=== PATIENT | male | born 1980 | race Hispanic/Latino ===

== ENCOUNTER 2018-09-28 08:35 | Observation (INO) | payer OTHER ==
[~2018-09-28] VITALS: Ht 170.2 cm; Wt 112.0 kg
[~2018-09-28 08:35] MED LIST: METFORMIN1000 MG PO
--- NOTE | 2018-09-28 08:43 | NUR ---
PT TO ROOM WITH A STEADY GAIT.
--- NOTE | 2018-09-28 08:50 | NUR ---
PT STATES APPROX 2 HOURS AGO HAD LEFT SIDED CHEST PAIN THAT RADIATES TO LEFT SHOULDER. LASTED A FEW MIN AND WS GONE, STATES HAS HAD 2-3 SIMILAR EPISODES IN LAST COUPLE OF WEEKS AND ONLY LASTS A FEW MIN.
--- NOTE | 2018-09-28 09:39 | NUR ---
NO CHEST PAIN AT THIS TIME
[2018-09-28 09:43] LABS: HEMATOCRIT 44.5 % (39.0-50.0); HEMOGLOBIN 15.1 g/dl (14.0-18.0); IMMATURE GRANULOCYTES 0.6 % (0.0-5.0); MEAN CELL VOLUME 85.9 fL CALC (80.0-100.0); MEAN CORPUSCULAR HGB 29.2 pG CALC (26.0-32.0); MEAN CORPUSCULAR HGB CONC 33.9 g/L CALC (32.0-36.0); NEUT# 3.51 thou/uL (1.82-7.42); RED BLOOD COUNT 5.18 mill/uL (4.70-6.10); RED CELL DISTRI WIDTH 12.2 % (11.5-15.5)
[2018-09-28 09:57] LABS: ALBUMIN 4.8 g/dL (3.2-5.0); ALKALINE PHOSPHATASE 59 u/l (38-126); ANION GAP 17 (6-22 (CALC)); BILIRUBIN, TOTAL 0.6 mg/dL (0.0-1.4); BUN 18 mg/dL (9-20); BUN/CREATININE RATIO 28 (12-20 (CALC)); CARBON DIOXIDE 25 mmol/l (22-30); CHLORIDE 101 mmol/l (95-108); CREATININE 0.7 mg/dL (0.7-1.3); GFR > 60 ML/MIN (>=60 (CALC)); GFR FOR AFR.AMER. > 60 ML/MIN (>=60 (CALC)); LIPASE 270 u/l (23-300); POTASSIUM 4.1 mmol/l (3.5-5.1); SGOT/AST 26 u/l (17-59); SODIUM 138 mmol/l (137-146); TOTAL PROTEIN 8.2 g/dL (6.3-8.2)
--- NOTE | 2018-09-28 10:30 | NUR ---
PT REMAINS CHEST PAIN FREE, VITAL SIGNS STABLE. CALL LIGHT ON STRETCHER, SITTING TALKING WITH FAMILY AND WATCHING TV.
--- NOTE | 2018-09-28 11:37 | NUR ---
PT STATES ONLY HAS SOME LEFT SHOULDER PAIN, THINKS FROM MAYBE LIFTING SOMETHING HEAVY TWO DAYS AGO. PT ALERT/ORIENTED X3
--- NOTE | 2018-09-28 12:49 | NUR ---
FOOD TRAY GIVEN TO PT WAIT FOR BED ASSIGNMENT
--- NOTE | 2018-09-28 12:58 | NUR ---
ATE APPROX 75% OF FOOD TRAY, LAUGHING AND JOKING WITH STAFF, NO CHEST PAIN, VITAL SIGNS STABLE, AT BEDSIDE
[2018-09-28 13:01] LABS: URINE BILIRUBIN - DIPSTICK NEGATIVE (NEGATIVE); URINE BLOOD DIPSTICK NEGATIVE (NEGATIVE); URINE COLOR YELLOW; URINE GLUCOSE - DIPSTICK NEGATIVE (NEGATIVE); URINE KETONE NEGATIVE (NEGATIVE); URINE LEUK ESTERASE NEGATIVE (Negative); URINE NITRITE - DIPSTICK NEGATIVE (Negative); URINE PROTEIN - DIPSTICK NEGATIVE (NEG-TRACE); URINE UROBILINOGEN - DIPSTICK 0.2 E.U./dL (0.2)
--- NOTE | 2018-09-28 13:03 | NUR ---
ICU BUSY WITH TRANSFER BUT WILL CALL ME BACK FOR REPORT SOON POSSIBLE
[2018-09-28 13:05] LABS: URINE CLARITY CLEAR
--- NOTE | 2018-09-28 13:54 | NUR ---
ICU STILL REMAINS BUSY AND UNABLE TO TAKE REPORT
--- NOTE | 2018-09-28 13:59 | NUR ---
TRIED TO GET PT UP TO DO A WALK TEST. PT BECAME TOO DIZZY TO WALK AND SAT HER BACK DOWN AND NOTIFIED OF INABILITY TO FINISH WALK.
--- NOTE | 2018-09-28 14:25 | NUR ---
PT TAKEN TO ICU ON STRETCHER WITH MONITER, REPORT GIVEN TO DEN KIM FOR CONTINUATION OF CARE.
[2018-09-28 14:38] VITALS: BP 136/74
--- NOTE | 2018-09-28 14:38 | NUR ---
male pt received to ICU bed 4 (med surg overflow) via stretcher accompanied by Vira Schaefer RN in stable condition; ambulatory to bed with steady gait; weight obtained via bed scale; admission assessment completed at this time; pt alert and oriented; denies pain at current; c/c of left chest pain radiating to posterior left shoulder pain; pt denies associated n/v/sob or diaphoresis; no exacerbating factors noted; resp even and unlabored; lungs clear bilat; skin color wnl; ra; hr reg; strong pulses; no edema noted; sr on monitor; abd soft/ distended with bs present; no bm noted per verse writer; pt admits to voiding without complication; no urine to inspect at this time; #20 to rac flushed and patent; no redness or edema noted at site; plan of care explained; will continue to monitor
--- NOTE | 2018-09-28 15:15 | NUR ---
Dr Esquivel called per story writer; informed of pt arrival to unit
--- NOTE | 2018-09-28 16:00 | NUR ---
awake in bed; spouse present at bedside; no apparent distress noted; pt offers no complaints; denies pain at current; st on monitor; Dr Esquivel present at bedside to assess pt and discuss plan of care
[2018-09-28 16:15] VITALS: BP 128/98
--- NOTE | 2018-09-28 17:59 | NUR ---
awake in bed; spouse at bedside; pt offers no complaints; no distress noted; sr on monitor; iv intact; no chest pain since admission to unit; call light within reach
--- NOTE | 2018-09-28 19:00 | NUR ---
pt awake in bed; complaints of feeling like my "glucose is high"; accucheck of 175; pt states he normally takes glucophage 1000mg twice a daily; med ordered daily; pt requesting glucophage; will clarify and administered as ordered
[2018-09-28 20:00] VITALS: BP 136/93
[2018-09-29] VITALS: BP 105/85
[2018-09-29 04:00] VITALS: BP 114/60
[2018-09-29 05:47] LABS: HEMATOCRIT 44.4 % (39.0-50.0); IMMATURE GRANULOCYTES 0.4 % (0.0-5.0); MEAN CELL VOLUME 85.7 fL CALC (80.0-100.0); MEAN CORPUSCULAR HGB CONC 33.8 g/L CALC (32.0-36.0); NEUT# 4.24 thou/uL (1.82-7.42); RED BLOOD COUNT 5.18 mill/uL (4.70-6.10); RED CELL DISTRI WIDTH 12.3 % (11.5-15.5)
[2018-09-29 06:02] LABS: ALBUMIN 4.2 g/dL (3.2-5.0); ALKALINE PHOSPHATASE 52 u/l (38-126); AMYLASE 35 u/l (30-110); ANION GAP 16 (6-22 (CALC)); BILIRUBIN, TOTAL 0.4 mg/dL (0.0-1.4); BUN 19 mg/dL (9-20); BUN/CREATININE RATIO 31 (12-20 (CALC)); CARBON DIOXIDE 22 mmol/l (22-30); CHLORIDE 105 mmol/l (95-108); CHOLESTEROL HDL RATIO 4.7 (<4.4 (CALC)); CREATININE 0.6 mg/dL (0.7-1.3); GFR > 60 ML/MIN (>=60 (CALC)); GFR FOR AFR.AMER. > 60 ML/MIN (>=60 (CALC)); LIPASE 133 u/l (23-300); MAGNESIUM 1.6 mg/dL (1.6-2.3); POTASSIUM 4.2 mmol/l (3.5-5.1); SGOT/AST 21 u/l (17-59); SODIUM 138 mmol/l (137-146); TOTAL PROTEIN 7.1 g/dL (6.3-8.2)
--- NOTE | 2018-09-29 06:55 | NUR ---
RECVD REPORT AT START OF SHIFT.
--- NOTE | 2018-09-29 07:19 | NUR ---
accucheck completed: 151. pt states he does not take insulin and only checks his sugar before breakfast & dinner. pt returned to sleep after accucheck. no needs/concerns at this time.
--- NOTE | 2018-09-29 07:57 | NUR ---
PT A&Ox4. SITTING UP IN BED, EATING BREAKFAST. DENIES CP. DENIES SOB. BREATHING EVEN/UNLABORED, LUNGS CTA. ABD SOFT/NONTENDER, ACTIVE BS. BM YESTERDAY. SUN. NO EDEMA. AFEBRILE. EYES PERRLA @3. NEGATIVE ASSESSMENT.
[2018-09-29 08:00] VITALS: BP 136/73
--- NOTE | 2018-09-29 08:58 | NUR ---
RETURNED TO PTS BEDSIDE.
--- NOTE | 2018-09-29 10:21 | NUR ---
DR ODEN @BEDSIDE WITH PT/.
[2018-09-29] MEDS ORDERED: ATORVASTATIN CA20 MG PO (10:30)
--- NOTE | 2018-09-29 11:07 | NUR ---
PT/ EDUCATED ON DC INSTRUCTIONS. PT GIVEN NOTE FOR WORK. PT REFUSED WC, AMBULATED OUT OF ICU WITH STABLE GAIT AND ALL HIS BELONGINGS.
== END 2018-09-29 11:07 | disposition home or self-care (01) | DRG 313 ==
LOC: ED 08:35 → ED-I 11:15 → ED 12:07 → ICU 12:08 → UNDODEPER 15:36 → ICU 09-29 11:07
PROVIDERS: Emergency Medicine; ADMIT Internal Medicine Nephrology; ATTEND Internal Medicine Nephrology
DX: R07.89 Other chest pain (principal); E11.9 Type 2 diabetes mellitus without complications; E78.5 Hyperlipidemia, unspecified; E66.9 Obesity, unspecified; Z68.38 Body mass index [BMI] 38.0-38.9, adult; Z79.84 Long term (current) use of oral hypoglycemic drugs

== ENCOUNTER 2020-03-16 08:44 | Emergency (ER) | payer OTHER ==
[~2020-03-16] VITALS: Ht 170.2 cm; Wt 113.6 kg
[~2020-03-16 08:44] MED LIST changes: +ATORVASTATIN CA20 MG PO
[2020-03-16 09:10] LABS: HEMATOCRIT 43.3 % (39.0-50.0); HEMOGLOBIN 14.3 g/dl (14.0-18.0); IMMATURE GRANULOCYTES 0.4 % (0.0-5.0); MEAN CELL VOLUME 86.3 fL CALC (80.0-100.0); MEAN CORPUSCULAR HGB 28.5 pG CALC (26.0-32.0); NEUT# 3.27 thou/uL (1.82-7.42); RED BLOOD COUNT 5.02 mill/uL (4.70-6.10); RED CELL DISTRI WIDTH 11.9 % (11.5-15.5)
[2020-03-16 09:11] LABS: URINE BILIRUBIN - DIPSTICK NEGATIVE (NEGATIVE); URINE BLOOD DIPSTICK NEGATIVE (NEGATIVE); URINE COLOR YELLOW; URINE GLUCOSE - DIPSTICK >=1000 mg/dL (NEGATIVE); URINE KETONE TRACE mg/dL (NEGATIVE); URINE LEUK ESTERASE NEGATIVE (NEGATIVE); URINE NITRITE - DIPSTICK NEGATIVE (Negative); URINE PROTEIN - DIPSTICK NEGATIVE (NEG-TRACE); URINE SPECIFIC GRAVITY 1.015; URINE UROBILINOGEN - DIPSTICK 0.2 E.U./dL (0.2)
[2020-03-16 09:38] LABS: ALBUMIN 4.5 g/dL (3.2-5.0); ALKALINE PHOSPHATASE 83 u/l (38-126); ANION GAP 14 (6-22 (CALC)); BILIRUBIN, TOTAL 0.4 mg/dL (0.0-1.4); BUN 24 mg/dL (9-20); BUN/CREATININE RATIO 37 (12-20 (CALC)); CARBON DIOXIDE 26 mmol/l (22-30); CHLORIDE 98 mmol/l (95-108); CREATININE 0.6 mg/dL (0.7-1.3); GFR > 60 ML/MIN (>=60 (CALC)); GFR FOR AFR.AMER. > 60 ML/MIN (>=60 (CALC)); LIPASE 207 u/l (23-300); POTASSIUM 4.7 mmol/l (3.5-5.1); SGOT/AST 28 u/l (17-59); SODIUM 134 mmol/l (137-146); TOTAL PROTEIN 7.5 g/dL (6.3-8.2)
[2020-03-16] MEDS ORDERED: PEPCID20 MG PO (11:59)
[2020-03-16 12:24] VITALS: BP 129/58
== END 2020-03-16 12:30 | disposition home or self-care (01) | DRG 392 ==
LOC: ED 08:44
PROVIDERS: Student in an Organized Health Care Education/Training Program
DX: K21.9 Gastro-esophageal reflux disease without esophagitis (principal); E11.9 Type 2 diabetes mellitus without complications; I10 Essential (primary) hypertension; Z79.84 Long term (current) use of oral hypoglycemic drugs
CPT/HCPCS: Q9967

== ENCOUNTER 2021-02-21 08:23 | Emergency (ER) | payer OTHER ==
[~2021-02-21] VITALS: Ht 170.2 cm; Wt 125.0 kg
[~2021-02-21 08:23] MED LIST changes: +PEPCID20 MG PO
[2021-02-21 09:37] LABS: GFR > 60 ML/MIN (>=60 (CALC)); GFR FOR AFR.AMER. > 60 ML/MIN (>=60 (CALC))
[2021-02-21 09:37] LABS: HEMATOCRIT 43.8 % (39.0-50.0); HEMOGLOBIN 15.1 g/dl (14.0-18.0); IMMATURE GRANULOCYTES 0.3 % (0.0-5.0); MEAN CELL VOLUME 85.7 fL CALC (80.0-100.0); MEAN CORPUSCULAR HGB 29.5 pG CALC (26.0-32.0); MEAN CORPUSCULAR HGB CONC 34.5 g/dL CAL (32.0-36.0); NEUT# 4.13 thou/uL (1.82-7.42); RED BLOOD COUNT 5.11 mill/uL (4.70-6.10); RED CELL DISTRI WIDTH 11.4 % (11.5-15.5)
[2021-02-21 09:39] LABS: URINE BILIRUBIN - DIPSTICK NEGATIVE (NEGATIVE); URINE BLOOD DIPSTICK NEGATIVE (NEGATIVE); URINE COLOR YELLOW; URINE GLUCOSE - DIPSTICK 500 mg/dL (NEGATIVE); URINE KETONE NEGATIVE (NEGATIVE); URINE LEUK ESTERASE NEGATIVE (NEGATIVE); URINE NITRITE - DIPSTICK NEGATIVE (Negative); URINE PROTEIN - DIPSTICK NEGATIVE (NEG-TRACE); URINE UROBILINOGEN - DIPSTICK 0.2 E.U./dL (0.2)
[2021-02-21 09:56] LABS: ALBUMIN 4.3 g/dL (3.2-5.0); ALKALINE PHOSPHATASE 54 u/l (38-126); ANION GAP 14 (6-22 (CALC)); BILIRUBIN, TOTAL 0.5 mg/dL (0.0-1.4); BUN 15 mg/dL (9-20); BUN/CREATININE RATIO 27 (12-20 (CALC)); CARBON DIOXIDE 26 mmol/l (22-30); CHLORIDE 99 mmol/l (95-108); CREATININE 0.6 mg/dL (0.7-1.3); GFR > 60 ML/MIN (>=60 (CALC)); GFR FOR AFR.AMER. > 60 ML/MIN (>=60 (CALC)); LIPASE 118 u/l (23-300); POTASSIUM 4.2 mmol/l (3.5-5.1); SGOT/AST 45 u/l (17-59); SODIUM 134 mmol/l (137-146); TOTAL PROTEIN 7.7 g/dL (6.3-8.2)
[2021-02-21 11:36] VITALS: BP 136/63
== END 2021-02-21 11:37 | disposition home or self-care (01) | DRG 392 ==
LOC: ED 08:23
PROVIDERS: Family Medicine
DX: R10.13 Epigastric pain (principal); R10.11 Right upper quadrant pain; R10.32 Left lower quadrant pain; E11.9 Type 2 diabetes mellitus without complications; I10 Essential (primary) hypertension; Z79.84 Long term (current) use of oral hypoglycemic drugs
CPT/HCPCS: Q9967

== ENCOUNTER 2022-01-07 10:49 | Emergency (ER) | payer OTHER ==
[~2022-01-07] VITALS: Ht 170.2 cm; Wt 114.0 kg
[2022-01-07] VITALS (9 sets, daily range): BP systolic 117–144; BP diastolic 71–85
[2022-01-07] MEDS ORDERED: OZEMPIC2 MG/1.5 M IM (11:02)
[2022-01-07] MEDS ORDERED: LUNESTA1 M1 PO (11:02)
[2022-01-07] MEDS ORDERED: ZOLOFT25 MG PO (11:02)
[2022-01-07 11:22] LABS: HEMATOCRIT 46.3 % (39.0-50.0); HEMOGLOBIN 15.8 g/dl (14.0-18.0); IMMATURE GRANULOCYTES 0.2 % (0.0-5.0); MEAN CELL VOLUME 86.1 fL CALC (80.0-100.0); MEAN CORPUSCULAR HGB 29.4 pG CALC (26.0-32.0); MEAN CORPUSCULAR HGB CONC 34.1 g/dL CAL (32.0-36.0); NEUT# 7.81 thou/uL (1.82-7.42); RED BLOOD COUNT 5.38 mill/uL (4.70-6.10); RED CELL DISTRI WIDTH 11.5 % (11.5-15.5)
[2022-01-07 11:28] LABS: URINE BILIRUBIN - DIPSTICK NEGATIVE (NEGATIVE); URINE BLOOD DIPSTICK NEGATIVE (NEGATIVE); URINE COLOR YELLOW; URINE GLUCOSE - DIPSTICK NEGATIVE (NEGATIVE); URINE KETONE NEGATIVE (NEGATIVE); URINE LEUK ESTERASE NEGATIVE (NEGATIVE); URINE PROTEIN - DIPSTICK NEGATIVE (NEG-TRACE); URINE UROBILINOGEN - DIPSTICK 0.2 E.U./dL (0.2)
[2022-01-07 11:30] LABS: URINE NITRITE - DIPSTICK NEGATIVE (Negative)
[2022-01-07 11:31] LABS: ALBUMIN 4.6 g/dL (3.2-5.0); ALKALINE PHOSPHATASE 66 u/l (38-126); ANION GAP 15 (6-22 (CALC)); BILIRUBIN, TOTAL 0.5 mg/dL (0.0-1.4); BUN 15 mg/dL (9-20); BUN/CREATININE RATIO 18 (12-20 (CALC)); CARBON DIOXIDE 23 mmol/l (22-30); CHLORIDE 104 mmol/l (95-108); CREATININE 0.8 mg/dL (0.7-1.3); GFR FOR AFR.AMER. > 60 ML/MIN (>=60 (CALC)); GFR OTHER RACES > 60 ML/MIN (>=60 (CALC)); POTASSIUM 3.8 mmol/l (3.5-5.1); SGOT/AST 34 u/l (17-59); SODIUM 138 mmol/l (137-146); TOTAL PROTEIN 8.3 g/dL (6.3-8.2)
[2022-01-07] MEDS ORDERED: PROAIR HFA108 MCG/AC PO (14:29)
[2022-01-07] MEDS ORDERED: ZPAK PO (14:29)
[2022-01-07] MEDS ORDERED: TRAZODONE100 MG PO (14:29)
== END 2022-01-07 14:42 | disposition home or self-care (01) | DRG 179 ==
LOC: ED 10:49
PROVIDERS: Family Medicine
DX: U07.1 COVID-19 (principal); R06.02 Shortness of breath; R05.9 Cough, unspecified; I10 Essential (primary) hypertension; E11.9 Type 2 diabetes mellitus without complications; E66.9 Obesity, unspecified; Z79.84 Long term (current) use of oral hypoglycemic drugs
CPT/HCPCS: Q9967

== ENCOUNTER 2022-07-07 08:25 | Emergency (ER) | payer OTHER ==
[~2022-07-07] VITALS: Ht 170.2 cm; Wt 112.7 kg
[2022-07-07] VITALS (17 sets, daily range): BP systolic 91–159; BP diastolic 59–98
[~2022-07-07 08:25] MED LIST changes: +LUNESTA1 M1 PO; +OZEMPIC2 MG/1.5 M IM; +PROAIR HFA108 MCG/AC PO; +TRAZODONE100 MG PO; +ZOLOFT25 MG PO; +ZPAK PO
[2022-07-07 08:55] LABS: BASO% 0.2 % (0-3); EOS% 0.2 % (0-8); HEMOGLOBIN 14.6 g/dl (14.0-18.0); IMMATURE GRANULOCYTES 0.2 % (0.0-5.0); LYMPH% 13.7 % (15-41); MEAN CELL VOLUME 86.1 fL CALC (80.0-100.0); MEAN CORPUSCULAR HGB 29.9 pG CALC (26.0-32.0); MEAN CORPUSCULAR HGB CONC 34.8 g/dL CAL (32.0-36.0); MONO% 4.4 % (2-13); NEUT# 9.94 thou/uL (1.82-7.42); NEUT% 81.3 % (42-76); RED BLOOD COUNT 4.88 mill/uL (4.70-6.10); RED CELL DISTRI WIDTH 12.3 % (11.5-15.5)
[2022-07-07 09:06] LABS: ALBUMIN 4.8 g/dL (3.2-5.0); ALKALINE PHOSPHATASE 75 u/l (38-126); ANION GAP 13 (6-22 (CALC)); BILIRUBIN, TOTAL 0.3 mg/dL (0.0-1.4); BUN 18 mg/dL (9-20); BUN/CREATININE RATIO 26 (12-20 (CALC)); CHLORIDE 101 mmol/l (95-108); CREATININE 0.7 mg/dL (0.7-1.3); GFR FOR AFR.AMER. > 60 ML/MIN (>=60 (CALC)); GFR OTHER RACES > 60 ML/MIN (>=60 (CALC)); POTASSIUM 4.5 mmol/l (3.5-5.1); SGOT/AST 32 u/l (17-59); SODIUM 138 mmol/l (137-146); TOTAL PROTEIN 8.5 g/dL (6.3-8.2)
[2022-07-07 09:09] LABS: CARBON DIOXIDE 29 mmol/l (22-30)
[2022-07-10] MEDS ORDERED: PROTONIX40 M2 PO (09:55)
== END 2022-07-07 13:55 | disposition home or self-care (01) | DRG 313 ==
LOC: ED 08:25
PROVIDERS: Family Medicine
DX: R07.9 Chest pain, unspecified (principal)
CPT/HCPCS: Q9967